=== PATIENT | female | born 1995 | race Caucasian/White ===

== ENCOUNTER 2023-05-24 20:07 | Emergency (ER) | payer BC ==
[~2023-05-24] VITALS: Ht 160 cm; Wt 49.9 kg
== END 2023-05-24 21:33 | disposition home or self-care (01) ==
LOC: ED 20:07
DX: R07.89 Other chest pain (principal); Z88.0 Allergy status to penicillin; Z88.1 Allergy status to other antibiotic agents; Z88.8 Allergy status to other drugs, medicaments and biological substances